=== PATIENT | male | born 1970 | race Caucasian/White ===

== ENCOUNTER 2018-07-05 15:24 | Emergency (ER) | payer MEDICARE, OTHER ==
[~2018-07-05] VITALS: Ht 180.3 cm; Wt 136.1 kg
[2018-07-05] MEDS ORDERED: IV NORMAL SALINE 1000ML BAG 1,000 ML IV ONE ×2 (16:00→18:30)
[2018-07-05 16:23] LABS: BASO % 0 % (0-3); EOS % 1 % (0-3); HEMATOCRIT 46.5 % (39.0-53.0); LYMPH # 1.7 x10^3/uL (1.0-4.8); LYMPH % 22 % (24-48); MEAN CORPUSCULAR HEMOGLOBIN 31 pg (25-35); MEAN CORPUSCULAR HGB CONC 34 g/dL (31-37); MEAN CORPUSCULAR VOLUME 90 fL (79-100); MONO # 0.7 x10^3/uL (0.0-1.1); MONO % 9 % (0-9); NEUT # 5.1 x10^3uL (1.8-7.7); NEUT % 68 % (31-73); PLATELET COUNT 200 x10^3/uL (140-400); RED BLOOD COUNT 5.14 x10^6/uL (4.30-5.70); RED CELL DISTRIBUTION WIDTH 13.7 % (11.5-14.5); WHITE BLOOD COUNT 7.5 x10^3/uL (4.0-11.0)
[2018-07-05 16:26] LABS: BILIRUBIN,URINE SMALL (NEG); CLARITY,URINE CLEAR; COLOR,URINE YELLOW; NITRITE,URINE NEGATIVE (NEG); PH,URINE 5.5; PROTEIN,URINE NEGATIVE (NEG-TRACE); UROBILINOGEN,URINE 0.2 mg/dL (0.2 mg/dL)
[2018-07-05 16:29] LABS: FECAL OB PT POSITIVE (NEG)
[2018-07-05 16:31] LABS: GFR 79.4; POTASSIUM 4.2 mmol/L (3.5-5.1)
[2018-07-05 16:38] LABS: ALBUMIN 4.1 g/dL (3.4-5.0); BACTERIA,URINE FEW /HPF (0-FEW); HYALINE CASTS, URINE MODERATE /HPF; RBC,URINE 0 /HPF (0-2); SQUAMOUS EPITHELIAL CELL,UR FEW /LPF; TOTAL BILIRUBIN 1.5 mg/dL (0.2-1.0); TOTAL PROTEIN 8.4 g/dL (6.4-8.2)
[2018-07-05] MEDS ORDERED: CONTRAST GIVEN. MC PRN (16:45)
[2018-07-05] MEDS ORDERED: IOHEXOL 300 MG/ML 100ML VIAL. IV ONE (17:00)
[2018-07-05] MEDS ORDERED: IOHEXOL 240 MG/ML 50ML VIAL. PO ONE (17:00)
[2018-07-05 17:29] VITALS: BP 169/86
--- NOTE | 2018-07-05 18:28 | RAD ---
CT ABD PELV W/ORAL IV CONTRAST Indication: Blood in stools Technique: Postcontrast CT imaging was performed of the abdomen pelvis, multiplanar reconstruction images submitted. Oral contrast was also given. One or more of the following individualized dose reduction techniques were utilized for this examination: 1. Automated exposure control 2. Adjustment of the mA and/or kV according to patient size 3. Use of iterative reconstruction technique. Comparison: None Findings: There is no abnormality of the limited visualized lung bases. There may be hepatic steatosis. There is no focal abnormality identified liver, pancreas, spleen. There is a fold near the gallbladder fundus, no significant abnormality identified by CT. There is probable small right renal calculus about 0.3 cm, also probable small inferior right renal calculus 0.2 cm. There is 1.1 cm hypodense lesion of the mid right kidney, density measurements not of a simple cyst about 40 Hounsfield units. There is also more medial hypodense lesion of the mid left kidney with density measurements also indeterminate for a cyst about 49 Hounsfield units, measures about 1.3 cm in size. Bowel is not significantly dilated. There is no free fluid or free air. Normal appendix is visualized. There is [id number] proximal sigmoid diverticulosis, not associated with significant inflammatory type change. There is mild hazy change of the perirectal fat bilaterally. There is no discrete extraluminal fluid collection/abscess. There is fat in the inguinal canals bilaterally, no bowel. There is fairly advanced degenerative disc disease at L5-S1 and to lesser degree at L4-5 with vacuum disc disease at these levels, lesser degree of degenerative disc disease more superior levels. There is degree of bilateral L5-S1 neural foramina compromise. IMPRESSION: 1. There is sigmoid diverticulosis not associated with significant inflammatory type change. There is mild nonspecific hazy change of the perirectal fat, could be seen with proctitis although difficult to accurately evaluate gonzalez. 2. There are likely small right renal calculi. There are a couple of hypodense foci of the mid left kidney indeterminate for simple cysts, attempt at visualization by nonemergent ultrasound or nonemergent pre and postcontrast CT recommended. Electronically signed by: Rasheed Tsai MD (07/05/2018 6:25 PM) [facility]
[2018-07-05] MEDS ORDERED: CIPR500T94 PO (18:42)
[2018-07-05] MEDS ORDERED: METR500T PO (18:42)
[2018-07-05] MEDS ORDERED: HYDR28.311 RC (18:42)
--- NOTE | 2018-07-05 18:42 | PHYS DOC ---
Past Medical History Past Medical History: Anxiety, Depression Past Surgical History: Other Additional Past Surgical Histo: BACK Alcohol Use: None Drug Use: None Adult General Chief Complaint Chief Complaint: DIZZY/LIGHT HEADED HPI HPI Patient is a 47 year old male who presents with some dizziness today while walking to the bus. He states the dizziness has resolved but he did have a bloody stool today. He has been having constipation and had a hard dry stool with the blood. He denies tarry stool, nausea or vomiting. He denies fever. Review of Systems Review of Systems Constitutional: Denies fever or chills [] Eyes: Denies change in visual acuity, redness, or eye pain [] HENT: Denies nasal congestion or sore throat [] Respiratory: Denies cough or shortness of breath [] Cardiovascular: No additional information not addressed in HPI [] GI: Denies abdominal pain, nausea, vomiting, bloody stools or diarrhea [] : Denies dysuria or hematuria [] Musculoskeletal: Denies back pain or joint pain [] Integument: Denies rash or skin lesions [] Neurologic: See HPI Endocrine: Denies polyuria or polydipsia [] All other systems were reviewed and found to be within normal limits, except as documented in this note. Current Medications Current Medications Current Medications Medications (Trade) Dose Ordered Sig/Santana Start Time Stop Time Status Last Admin Dose Admin Info (CONTRAST GIVEN -- Rx MONITORING) 1 each PRN DAILY PRN 07/05/18 16:45 07/05/18 19:58 DC Iohexol (Omnipaque 240 Mg/ml) 30 ml 1X ONCE 07/05/18 17:00 07/05/18 17:01 DC Iohexol (Omnipaque 300 Mg/ml) 75 ml 1X ONCE 07/05/18 17:00 07/05/18 17:01 DC 07/05/18 17:38 75 ML Sodium Chloride 1,000 ml @ 1,000 mls/hr 1X ONCE 07/05/18 18:30 07/05/18 19:29 DC 07/05/18 18:46 1,000 MLS/HR Allergies Allergies Allergies Coded Allergies Type Severity Reaction Last Updated Verified aspirin Allergy Severe hives 07/05/18 Yes Physical Exam Physical Exam Constitutional: Well developed, well nourished, no acute distress, non-toxic appearance. [] HENT: Normocephalic, atraumatic, bilateral external ears normal, oropharynx moist, no oral exudates, nose normal. [] Eyes: PERRLA, EOMI, conjunctiva normal, no discharge. [] Neck: Normal range of motion, no tenderness, supple, no stridor. [] Cardiovascular:Heart rate regular rhythm, no murmur [] Lungs & Thorax: Bilateral breath sounds clear to auscultation [] Abdomen: Bowel sounds normal, soft, no tenderness, no masses, no pulsatile masses. [] Skin: Warm, dry, no erythema, no rash. [] Back: No tenderness, no CVA tenderness. [] Extremities: No tenderness, no cyanosis, no clubbing, ROM intact, no edema. [] Neurologic: Alert and oriented X 3, normal motor function, normal sensory function, no focal deficits noted, cranial nerves II through XII are grossly intact. [] Psychologic: Affect normal, judgement normal, mood normal. [] Current Patient Data Vital Signs Vital Signs Date Time Temp Pulse Resp B/P (MAP) Pulse Ox O2 Delivery O2 Flow Rate FiO2 07/05/18 17:29 98 95 07/05/18 15:46 98.6 20 114/82 (93) Room Air 98.6 Lab Values Laboratory Tests Test 07/05/18 16:00 07/05/18 16:05 Stool Occult Blood Positive (NEG) White Blood Count 7.5 x10^3/uL (4.0-11.0) Red Blood Count 5.14 x10^6/uL (4.30-5.70) Hemoglobin 16.0 g/dL (13.0-17.5) Hematocrit 46.5 % (39.0-53.0) Mean Corpuscular Volume 90 fL (79-100) Mean Corpuscular Hemoglobin 31 pg (25-35) Mean Corpuscular Hemoglobin Concent 34 g/dL (31-37) Red Cell Distribution Width 13.7 % (11.5-14.5) Platelet Count 200 x10^3/uL (140-400) Neutrophils (%) (Auto) 68 % (31-73) Lymphocytes (%) (Auto) 22 % (24-48) L Monocytes (%) (Auto) 9 % (0-9) Eosinophils (%) (Auto) 1 % (0-3) Basophils (%) (Auto) 0 % (0-3) Neutrophils # (Auto) 5.1 x10^3uL (1.8-7.7) Lymphocytes # (Auto) 1.7 x10^3/uL (1.0-4.8) Monocytes # (Auto) 0.7 x10^3/uL (0.0-1.1) Eosinophils # (Auto) 0.0 x10^3/uL (0.0-0.7) Basophils # (Auto) 0.0 x10^3/uL (0.0-0.2) Urine Collection Type Void Urine Color Yellow Urine Clarity Clear Urine pH 5.5 Urine Specific [place] 1.015 Urine Protein Negative mg/dL (NEG-TRACE) Urine Glucose (UA) Negative mg/dL (NEG) Urine Ketones (Stick) >=80 mg/dL (NEG) Urine Blood Negative (NEG) Urine Nitrite Negative (NEG) Urine Bilirubin Small (NEG) Urine Urobilinogen Dipstick 0.2 mg/dL (0.2 mg/dL) Urine Leukocyte Esterase Negative (NEG) Urine RBC 0 /HPF (0-2) Urine WBC 5-10 /HPF (0-4) Urine Squamous Epithelial Cells Few /LPF Urine Bacteria Few /HPF (0-FEW) Urine Hyaline Casts Moderate /HPF Urine Mucus Mod /LPF Sodium Level 140 mmol/L (136-145) Potassium Level 4.2 mmol/L (3.5-5.1) Chloride Level 102 mmol/L (98-107) Carbon Dioxide Level 27 mmol/L (21-32) Anion Gap 11 (6-14) Blood Urea Nitrogen 12 mg/dL (8-26) Creatinine 1.0 mg/dL (0.7-1.3) Estimated GFR (Cockcroft-Gault) 79.4 BUN/Creatinine Ratio 12 (6-20) Glucose Level 90 mg/dL (70-99) Calcium Level 9.0 mg/dL (8.5-10.1) Total Bilirubin 1.5 mg/dL (0.2-1.0) H Aspartate Amino Transferase (AST) 37 U/L (15-37) Alanine Aminotransferase (ALT) 26 U/L (16-63) Alkaline Phosphatase 86 U/L (46-116) Total Protein 8.4 g/dL (6.4-8.2) H Albumin 4.1 g/dL (3.4-5.0) Albumin/Globulin Ratio 1.0 (1.0-1.7) Laboratory Tests 07/05/18 16:05 Laboratory Tests 07/05/18 16:05 Microbiology 07/05/18 Urine Culture - Final, Complete 07/05/18 Urine Culture Result 1 (LEIGHANN) - Final, Complete EKG EKG [] Radiology/Procedures Radiology/Procedures []PATIENT: MARINA OLMOS PACCOUNT: [id number]#: [id number] : 1970 LOCATION: ER AGE: 47 SEX: M EXAM STATUS: REG ER ORD. PHYSICIAN: JENNIFER MARTI APRN REASON: rectal bleeding PROCEDURE: CT ABD PELV W/ORAL&IV CONTRAST CT ABD PELV W/ORAL IV CONTRAST Indication: Blood in stools Technique: Postcontrast CT imaging was performed of the abdomen pelvis, multiplanar reconstruction images submitted. Oral contrast was also given. One or more of the following individualized dose reduction techniques were utilized for this examination: 1. Automated exposure control 2. Adjustment of the mA and/or kV according to patient size 3. Use of iterative reconstruction technique. Comparison: None Findings: There is no abnormality of the limited visualized lung bases. There may be hepatic steatosis. There is no focal abnormality identified liver, pancreas, spleen. There is a fold near the gallbladder fundus, no significant abnormality identified by CT. There is probable small right renal calculus about 0.3 cm, also probable small inferior right renal calculus 0.2 cm. There is 1.1 cm hypodense lesion of the mid right kidney, density measurements not of a simple cyst about 40 Hounsfield units. There is also more medial hypodense lesion of the mid left kidney with density measurements also indeterminate for a cyst about 49 Hounsfield units, measures about 1.3 cm in size. Bowel is not significantly dilated. There is no free fluid or free air. Normal appendix is visualized. There is [id number] proximal sigmoid diverticulosis, not associated with significant inflammatory type change. There is mild hazy change of the perirectal fat bilaterally. There is no discrete extraluminal fluid collection/abscess. There is fat in the inguinal canals bilaterally, no bowel. There is fairly advanced degenerative disc disease at L5-S1 and to lesser degree at L4-5 with vacuum disc disease at these levels, lesser degree of degenerative disc disease more superior levels. There is degree of bilateral L5-S1 neural foramina compromise. IMPRESSION: 1. There is sigmoid diverticulosis not associated with significant inflammatory type change. There is mild nonspecific hazy change of the perirectal fat, could be seen with proctitis although difficult to accurately evaluate gonzalez. 2. There are likely small right renal calculi. There are a couple of hypodense foci of the mid left kidney indeterminate for simple cysts, attempt at visualization by nonemergent ultrasound or nonemergent pre and postcontrast CT recommended. Electronically signed by: Judy Hdz MD (07/05/2018 6:25 PM) [facility] DICTATED and SIGNED BY: JUDY HDZ MD DATE: 07/05/18 182 Course & Med Decision Making Course & Med Decision Making Pertinent Labs and Imaging studies reviewed. (See chart for details) [] Dragon Disclaimer Dragon Disclaimer This electronic medical record was generated, in whole or in part, using a voice recognition dictation system. Departure Departure Impression: Primary Impression: Rectal bleeding Additional Impression: Diverticulosis Disposition: 01 HOME, SELF-CARE Condition: STABLE Referrals: UNKNOWN PCP NAME (PCP) THIERRY MCFARLANE MD Patient Instructions: Diverticulosis, Hemorrhoids, Rectal Bleeding, Easy-to- Read Additional Instructions: Take the medications as directed. Follow-up with GI for further evaluation of your condition. If worsening return to the emergency department. Scripts Metronidazole (FLAGYL) 500 Mg Tablet 1 TAB PO BID for diverticulosis, #14 TAB Prov: JENNIFER MARTI APRN 07/05/18 Ciprofloxacin Hcl (CIPRO) 500 Mg Tablet 1 TAB PO BID for diverticulosis, #20 TAB Prov: JENNIFER MARTI APRN 07/05/18 Hydrocortisone (PROCTOSOL-HC) 28.35 Gm Cream..g. 1 SARAY RC TID for hemmorhoids, #28.35 GM 1 Refill Prov: JENNIFER MARTI APRN 07/05/18 Problem Qualifiers JENNIFER MARTI APRN Jul 05, 2018 18:42
== END 2018-07-05 19:58 | disposition home or self-care (01) ==
LOC: ER 15:24
DX: K62.5 Hemorrhage of anus and rectum (principal); K57.90 Diverticulosis of intestine, part unspecified, without perforation or abscess without bleeding; R42 Dizziness and giddiness; Z88.6 Allergy status to analgesic agent
CPT/HCPCS: 36415; 74177; 80053; 81001; 82274; 85025; 87086; 96360; 96361; 99284; J7030; Q9967

== ENCOUNTER 2018-08-21 21:21 | Emergency (ER) | payer MEDICARE, OTHER ==
[~2018-08-21] VITALS: Ht 182.9 cm; Wt 136.1 kg
[~2018-08-21 21:21] MED LIST: CIPR500T94 PO; HYDR28.311 RC; METR500T PO
[2018-08-21] MEDS ORDERED: ONDANSETRON PF 4 MG/2 ML VIAL. IV ONE (23:00)
[2018-08-21] MEDS ORDERED: FAMOTIDINE 20 MG TABLET. PO ONE (23:00)
[2018-08-21 23:01] LABS: BASO % 1 % (0-3); EOS # 0.1 x10^3/uL (0.0-0.7); EOS % 1 % (0-3); HEMOGLOBIN 15.4 g/dL (13.0-17.5); LYMPH # 1.9 x10^3/uL (1.0-4.8); LYMPH % 29 % (24-48); MEAN CORPUSCULAR HEMOGLOBIN 30 pg (25-35); MEAN CORPUSCULAR HGB CONC 34 g/dL (31-37); MEAN CORPUSCULAR VOLUME 88 fL (79-100); MONO # 0.7 x10^3/uL (0.0-1.1); MONO % 10 % (0-9); NEUT # 3.8 x10^3uL (1.8-7.7); NEUT % 59 % (31-73); PLATELET COUNT 203 x10^3/uL (140-400); RED BLOOD COUNT 5.09 x10^6/uL (4.30-5.70); RED CELL DISTRIBUTION WIDTH 13.4 % (11.5-14.5); WHITE BLOOD COUNT 6.4 x10^3/uL (4.0-11.0)
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
[2018-08-21 23:12] LABS: GFR 79.4; POTASSIUM 3.6 mmol/L (3.5-5.1)
[2018-08-21 23:16] LABS: ACETAMIN < 2 mcg/ml (10-30); ETHANOL 10 mg/dL (0-10); SALIC < 2.8 mg/dL (2.8-20.0)
[2018-08-21 23:24] LABS: ALBUMIN 3.8 g/dL (3.4-5.0); DIRECT BILIRUBIN 0.2 mg/dL (0.0-0.2); MAGNESIUM 2.1 mg/dL (1.8-2.4); TOTAL BILIRUBIN 0.6 mg/dL (0.2-1.0); TOTAL PROTEIN 7.5 g/dL (6.4-8.2)
[2018-08-21] MEDS ORDERED: MULTIVIT INFUSN,ADULT 4,VIT K 10 ML, THIAMINE INJ 100 MG, FOLIC ACID INJ 1 MG in IV NOR... IV ONE (23:30)
[2018-08-21 23:49] LABS: BILIRUBIN,URINE NEGATIVE (NEG); CLARITY,URINE CLEAR; COLOR,URINE YELLOW; NITRITE,URINE NEGATIVE (NEG); PH,URINE 5.5; PROTEIN,URINE NEGATIVE (NEG-TRACE); UROBILINOGEN,URINE 0.2 mg/dL (0.2 mg/dL)
[2018-08-21 23:54] LABS: AMPHETAMINE/METHAMPHETAMINE POS (NEG); BARBITURATES NEG (NEG); BENZODIAZEPINES NEG (NEG); CANNABINOIDS NEG (NEG); COCAINE NEG (NEG); METHADONE NEG (NEG); OPIATES NEG (NEG); PHENCYCLIDINE NEG (NEG)
[2018-08-21 23:57] LABS: BACTERIA,URINE 0 /HPF (0-FEW); RBC,URINE OCC /HPF (0-2); SQUAMOUS EPITHELIAL CELL,UR OCC /LPF; WBC,URINE OCC /HPF (0-4)
--- NOTE | 2018-08-21 23:57 | RAD ---
EXAM: Chest, single view. HISTORY: Shortness of breath. COMPARISON: None. FINDINGS: A frontal view of the chest is obtained. There is no infiltrate, pleural effusion or pneumothorax. The heart is normal in size. IMPRESSION: No acute pulmonary finding. Electronically signed by: Nancy Hall MD (08/21/2018 11:54 PM) [facility]
[2018-08-22 02:45] VITALS: BP 149/99
--- NOTE | 2018-08-22 07:23 | EKG ---
[facility] [address] [place] [address] Test Date: 2018-08-21 Test Time: 22:48:49 Pat Name: MARINA OLMOS Department: Room: Gender: M [employer]: : 1970 Requested By: CHARITY LOUIS Order Number: [id number] Reading MD: Go Yun Measurements Intervals [place] Rate: 92 P: 66 ND: 158 QRS: 65 QRSD: 86 T: 54 QT: 338 QTc: 422 Interpretive Statements SINUS RHYTHM NORMAL ECG No previous ECG available for comparison Electronically Signed On 09-19-2018 13:09:15 CDT by Go Yun
== END 2018-08-22 02:55 ==
LOC: ER 21:21
DX: R45.851 Suicidal ideations (principal); F10.129 Alcohol abuse with intoxication, unspecified; Y90.9 Presence of alcohol in blood, level not specified; F32.9 Major depressive disorder, single episode, unspecified; F41.9 Anxiety disorder, unspecified; Z88.6 Allergy status to analgesic agent
CPT/HCPCS: 36415; 71045; 80048; 80076; 80307; 80329; 81001; 83735; 84484; 85025; 93005; 96365; 96375; 99285; G0480; J2060; J2405; J7030